=== PATIENT | female | born 1975 | race Caucasian/White ===

== ENCOUNTER → 2020-03-30 07:16 | Outpatient (CLI) | payer BC, SELFPAY ==
--- NOTE | ~2020-03-30 | MM_ITS ---
EXAMINATION: MM screening [facility] BI w dinora HISTORY: Screening mammogram TECHNIQUE: Craniocaudal and mediolateral oblique 3-D tomosynthesis images were obtained and synthetic 2-D images were generated. CAD analysis was submitted and interpreted. COMPARISON: 8 09/19/2016 bilateral digital screening mammogram 01/30/2012 bilateral diagnostic digital mammogram and bilateral breast ultrasound 01/23/2012 bilateral digital screening mammogram BREAST PARENCHYMAL COMPOSITION: The breasts are heterogeneously dense, which may obscure small masses . FINDINGS: Stable fibroglandular asymmetry. Occasional benign calcifications. There is no evidence of suspicious mass, calcification, or architectural distortion to suggest malignancy in either breast. T here has been no suspicious interval change. IMPRESSION: 1. No mammographic evidence of malignancy. 2. Recommend routine screening mammography in one year. BI-RADS Category 2: Benign finding(s). Reviewed, dictated and finalized at location A. FINISHER
== END ==
DX: Z12.31 Encounter for screening mammogram for malignant neoplasm of breast (principal)
CPT/HCPCS: 77063; 77067

== ENCOUNTER → 2022-02-21 16:43 | Outpatient (CLI) | payer BC, SELFPAY ==
--- NOTE | ~2022-02-21 | MM_ITS ---
EXAMINATION: MM screening [facility] BI w dinora HISTORY: Screening mammogram TECHNIQUE: Craniocaudal and mediolateral oblique 3-D tomosynthesis images were obtained and synthetic 2-D images were generated. CAD analysis was submitted and interpreted. COMPARISON: 03/30/2020, 12/03/2016 BREAST PARENCHYMAL COMPOSITION: There are scattered areas of fibroglandular density. FINDINGS: No suspicious mass, calcification, or architectural distortion are identified in either bharat ast to suggest malignancy. There has been no suspicious interval change. IMPRESSION: 1. No mammographic evidence of malignancy. 2. Recommend routine screening mammography in one year. BI-RADS Category 1: Negative Reviewed, dictated and finalized at location A.
== END ==
PROVIDERS: PCP Family Medicine; Visit Provider Nurse Practitioner Gerontology
DX: Z12.31 Encounter for screening mammogram for malignant neoplasm of breast (principal)
CPT/HCPCS: 77063; 77067

== ENCOUNTER 2023-06-10 08:11 | Outpatient (CLI) | payer BC, SELFPAY ==
[2023-06-10 09:17] LABS: Anion Gap 5 mmol/L (8-16); Blood Urea Nitrogen 14 mg/dL (7-17); Calcium 9.4 mg/dL (8.4-10.2); Carbon Dioxide 32 mmol/L (22-30); Chloride 103 mmol/L (98-107); Estimated Glomerular Filt Rate > 60; Glucose 106 mg/dL (65-110); Sodium 140 mmol/L (137-145)
== END 2023-06-10 08:12 | disposition home or self-care (01) ==
LOC: ANHSURGERY 08:13
PROVIDERS: Anesthesiology; PCP Family Medicine; Visit Provider Podiatrist Foot & Ankle Surgery
DX: Z01.818 Encounter for other preprocedural examination (principal); Z51.81 Encounter for therapeutic drug level monitoring
CPT/HCPCS: 36415; 80048

== ENCOUNTER 2023-06-13 00:07 | Day surgery (SDC) | payer BC, SELFPAY ==
[2023-06-06 09:52] VITALS: BMI 45.5
--- NOTE | 2023-06-06 10:10 | PC.NURSE ---
Report to the Outpatient Waiting Room, entrance under the green pavilion located off [facility], at time __10:00AM on date ___06/13/23____. Planned Procedure Time: _12:00PM . Time changes happen often and if your time is changed the preop area will call you the afternoon before. - You and your visitor will be asked to self-screen and do not enter if you have any COVID symptoms. - A mask is optional within the hospital at this time. Patients may have clear liquids (water, carbonated beverages, clear teas, apple juice) until 3 hours prior to surgery with a maximum of 20 ounces. - No food from midnight until time of surgery. Take the following medications with a SIP of water the morning of surgery: ___VIIBRYD DO NOT STOP ANY OF YOUR OTHER PRESCRIPTION MEDICATIONS PRIOR TO SURGERY ?EXCEPT THE FOLLOWING Medications to discontinue per physician __HOLD IBUPROFEN PER DR RICHARDSON(5 DAYS PRE-OP PER PATIENT)-LAST DOSE 06/07/23. HOLD ALL VITAMINS/SUPPLEMENTS 3 DAYS PRE-OP PER ANESTHESIA- LAST DOSE 06/09/23. Please no make-up, nail sami, hairspray, perfume, deodorant, or body powder the day of surgery. No jewelry (including any body piercings) or valuables the day of surgery, leave them at home. Please take a shower or bath the night before, or the morning of, surgery with an antibacterial soap. Wear comfortable, loose fitting clothing. - Jewelry must be removed prior to entering the operating room. Rings and piercings that are not removed may be cut off. - The hospital will not accept responsibility for valuables. - Please leave all valuables, including medications, at home the day of surgery. If you are going home after surgery, a licensed auto driver must drive you home. - NO public transportation without another adult if you receive anesthesia. - We recommend that an adult stay with you for 24 hours following discharge. - We also recommend that you do not drive, make important decision, drink alcoholic beverages, or take any drugs that were not prescribed by your health care provider for at least 24 hours after your discharge time. Follow any additional instructions given to you from your surgeon. If you or anyone in your household have experienced Covid symptoms in the past week, please notify your surgeon or the nurse liaison at the phone number below for possible testing. Telephone instructions given to ____PATIENT and asked if any additional questions and then verbalized understanding. Patient advised to call surgeon office or pre surgery nurse liaison [phone] if any additional questions.
--- NOTE | 2023-06-12 14:11 | WPDANESEPPF ---
Anes - Initial Pre Proc Eval Procedure: Operation Date: 06/13/23 12:00 Proposed Procedures p Partial Plantar Fasciectomy Right Foot - Donnie Camp JR, MD s Hammertoe Repair Fifth Digit Right Foot - Donnie Camp JR, MD Date/Time: 06/12/23 14:11 Surgeon: Donnie Camp JR, MD Pre Op Diagnosis: Plantar Fasciitis Right Foot, Hammertoe (cont) Patient Data Age: 47 Gender: F Height: 1.68 m Weight: 128 kg Allergies Allergy/AdvReac Type Severity Reaction Status Date / Time citalopram Allergy Mild rash Verified 06/13/23 10:16 escitalopram Allergy Mild rash Verified 06/13/23 10:16 Home Medications Medication Instructions Recorded Confirmed Type hydrochlorothiazide 12.5 mg tablet 12.5 mg PO QAM #90 tabs 10/03/22 06/13/23 Rx acetaminophen 500 mg capsule 1,000 mg PO QAM 06/06/23 06/13/23 History cholecalciferol (vitamin D3) 50 50 mcg PO DAILY 06/06/23 06/13/23 History mcg (2,000 unit) tablet ibuprofen 200 mg tablet 800 mg PO QAM 06/06/23 06/13/23 History losartan 100 mg tablet 100 mg PO QAM 06/06/23 06/13/23 History vilazodone 40 mg tablet (Viibryd) 40 mg PO QAM 06/06/23 06/13/23 History vitamin E 1,000 unit tablet 1 tablet PO DAILY 06/06/23 06/13/23 History Patient hx anesthesia problems: none Family hx anesthesia problems: none Results Review: All pre-operative results and documents have been reviewed as part of the pre-operative evaluation. [facility] Past Medical History Medical History Ankylosing spondylitis Arthritis Benign essential HTN ANA (generalized anxiety disorder) MDD (major depressive disorder), recurrent episode, moderate Morbid (severe) obesity due to excess calories Osteoarthritis of left knee Surgical History Surgical History History of nasal septoplasty History of tonsillectomy age 13 History of total knee arthroplasty R knee S/P right knee arthroscopy S/P JAMAR (total abdominal hysterectomy) Family History Family History Father Family history of gout Family history of diabetes mellitus in first degree relative Family history of malignant melanoma Mother Family history of malignant neoplasm of breast in first degree relative Lung cancer metastatic to brain Sibling Cerebrovascular accident Other Diabetes mellitus Family history of arthritis Social History Social History Social History: Smoking status: Never smoker Second hand tobacco smoke exposure: No Alcohol intake: current Alcohol use details: Occasionally Substance use: never Substance use type: does not use Lack of Transportation: No Lack of Food: Never True Current Housing: I Have Housing Concerned About Future Housing: No Difficulty Paying Gas/Electric Bills: No Difficulty Paying for Meds: No Currently Unemployed: No Education: Decline to Answer Difficulty w/ Childcare or Family Care: No Living arrangements: with family Additional living arrangements comments: [place] Occupation/Education: occupation Gender identity (if verbalized by the patient): Female Sexual Orientation (if Verbalized by the Patient): Straight or Heterosexual Spiritual care concerns: No Anes - Eval Final PreProcedure Day of Procedure 06/12/23 14:11 Patient weight: morbidly obese Heart: regular rate and rhythm Lungs: clear to auscultation Airway: Mallampati scale class II Neurological: alert and oriented Last oral intake: >/= 8 hours ASA classification: III Emergent: no Anesthetic plan: proceed Anesthesia type and monitoring: general GIVS and standard monitoring Results Review: All pre-operative results and documents have been reviewed as part of the pre-operative evaluation. Informed Consent: The patient's anesthetic plan and its attendant
--- NOTE | ~2023-06-13 | XR_ITS ---
EXAMINATION: XR surgery orthopedic DATE: 06/13/2023 13:15 INDICATION: Right foot surgery TECHNIQUE: Single fluoroscopic image of the right forefoot were obtained during during procedure perf ormed by Dr. Camp. Radiologist was not present for the imaging or procedure. The amount of fluoro scopy time used during this procedure was 0.1 minutes. COMPARISON: None. FINDINGS: Osteotomy of the head of the right fifth proximal phalanx. There is a metallic instrument laterally d eflecting the fifth middle and distal phalanges. Lucent soft tissue gas at the operative bed. IMPRESSION: 1. Fluoroscopy utilized during resection of the head of the right fifth proximal phalanx. Reviewed, dictated and finalized at location A. NDANT ARCADE IMPRESSION: 1. Fluoroscopy utilized during resection of the head of the right fifth proxima l phalanx.
--- NOTE | 2023-06-13 07:11 | WPDHPUPDATE1 ---
History and Physical Update Update Date/Time: 06/13/23 07:11 History and Physical has been reviewed, including an updated exam of the patient. There are NO changes in the patient's condition. Risks, benefits, and alternatives have been discussed and questions answered. Patient agrees to proceed with procedure.
[2023-06-13 10:41] VITALS: BP 130/64; PULSE 76; RESP 18; TEMP 36.7; O2SAT 98; BMI 43.8
[2023-06-13] MEDS: ceFAZolin 3 GM/D5W 100 ML 100 ML IVPB (12:29)
[2023-06-13] MEDS: BUPivacaine HCL 0.5% PF 30 ML VIAL 10 ML INFILTRATE (12:59)
[2023-06-13] MEDS: LIDOCAINE HCL 2% LOCAL INJ 20 ML VIAL 10 ML INFILTRATE (13:00)
--- NOTE | 2023-06-13 13:29 | W.PM.PROC2 ---
Procedure Note - Detailed Date of Procedure 06/13/23 Pre-op Diagnosis 1. Plantar Fasciitis Right Foot 2. Hammertoe deformity 5th digit right foot Post-op Diagnosis Same Procedure Performed 1. Partial plantar fasciectomy right foot 2. Hammertoe correction 5th digit right foot Surgeon Donnie Camp JR, DPM Anesthesia MAC and Local Indications 1. Painful inferior right heel 2. Painful 5th digit right foot Description of Procedure Under mild sedation, the patient was brought in to the operating room, placed on the operating table in the supine position. A pneumatic ankle tourniquet was placed about the patient's ankle. Following general anesthesia, local anesthesia was obtained about the affected right ankle utilizing 30 mL of a one to mix of 2% Lidocaine plain and 0.5% Marcaine plain to the tibial nerve and about the 5th metatarsal in a Yadav Block. The foot was then scrubbed, prepped, and draped in the usual aseptic manner. An Esmarch bandage was then used to exsanguinate the patient's foot and the pneumatic ankle tourniquet was then inflated. Next, an incision was made starting distal to the medial tubercle of the calcaneus extending distally 3cm. All bleeders were cauterized as necessary. Next the dissection was continued down to the plantar fascia it was exposed medially and laterally with [employer] [place] retractors. Two thirds of the medial plantar fascia was transected and a 4mm portion was also cut and discarded. The wound site was flushed with sterile saline. The deep subcutaneous tissue was reapproximated with 3.0 Vicryl and the skin was reapproximated with 2.0 Prolene and 3.0 Prolene in Vertical mattress and Simple interrupted suture technique. Attention was directed to the fifth digit where two converging semi-elliptical incisions were made about the dorsal proximal interphalangeal joint of the fifth digit right foot. The incisions were oriented from distal medial to proximal lateral. The ellipse of skin was excised in toto.? All bleeders were cauterized as necessary. The proximal interphalangeal joint was now identified.? A transverse tenotomy was created dorsal to the proximal interphalangeal joint, next the head of the proximal phalanx was carefully freed from the capsular and ligamentous structures.? The head of the proximal phalanx was resected with an oscillating saw blade and placed on the back table. Care was taken to make sure that adequate bone was resected with Fluoroscopy, also the digit was noted to sit in a more rectus position with the adductovarus deformity reduced.? I reapproximated the extensor tendon with 4.0 Vicryl. Next I reapproximated the skin with 4.0 Prolene in simple interrupted suture fashion technique in order to maintain the position of the digit in a rectus position. The skin plasty adequately reduced the deformity to the digit. Upon completion of the procedure, the incisions were dressed with adaptic, 4x4 gauze, kerlix and coban. The pneumatic ankle tourniquet was then deflated and a prompt hyperemic response was noted to all digits of the affected foot. A CAM Walker boot was then applied. The patient did very well with the procedure and the anesthesia. The patient was transferred to the recovery room with vital signs stable and vascular status intact to all toes of the affected foot. Following a period of postoperative monitoring, the patient will be discharged home on the following written and oral postoperative instructions: 1. The patient should keep the dressing clean, dry, and intact. Use a cast protector bag with showers. 2. The patient will be strictly non weight bearing with a knee scooter and a CAM Walker boot for one week folowed by protected weight bearing with CAM walker boot for an additional 2 weeks until the sutures are removed. 3. Patient should ice and elevate the affected foot when at rest. 4. The patient is to contact Dr. Camp for all postop care and if any problems arise. 5. Prescri
[2023-06-13 13:35] VITALS: BP 118/71; PULSE 69; RESP 16; O2SAT 98
[2023-06-13] MEDS: LACTATED RINGERS 1,000 ML 30 ML IV CONT (13:35)
[2023-06-13 14:05] VITALS: BP 123/73; PULSE 70; RESP 16
[2023-06-13 14:35] VITALS: BP 128/74; PULSE 59; RESP 16
[2023-06-13 14:55] VITALS: BP 129/75; PULSE 70; RESP 16
== END 2023-06-13 15:12 | disposition home or self-care (01) ==
PROVIDERS: PCP Family Medicine; Visit Provider Podiatrist Foot & Ankle Surgery
PROC: (CPT 28119; principal; 2023-06-13 12:00)
PROC: (CPT 28060; 2023-06-13 12:00)
DX: M72.2 Plantar fascial fibromatosis (principal); M20.41 Other hammer toe(s) (acquired), right foot; I10 Essential (primary) hypertension; F41.9 Anxiety disorder, unspecified; F33.1 Major depressive disorder, recurrent, moderate; M17.12 Unilateral primary osteoarthritis, left knee; E66.01 Morbid (severe) obesity due to excess calories; Z68.41 Body mass index [BMI] 40.0-44.9, adult; Z98.890 Other specified postprocedural states; Z80.8 Family history of malignant neoplasm of other organs or systems; Z82.49 Family history of ischemic heart disease and other diseases of the circulatory system
CPT/HCPCS: 28060; 28285; 99199; J0690; J1100; J2250; J2405; J2704; J3010; J7120

== ENCOUNTER 2024-04-08 13:47 | Outpatient (CLI) | payer BC, SELFPAY ==
--- NOTE | ~2024-04-08 | MM_ITS ---
EXAMINATION: MM screening [facility] BI w dinora HISTORY: Screening TECHNIQUE: Craniocaudal and mediolateral oblique 3-D tomosynthesis images were obtained and synthetic 2-D images were generated. CAD analysis was submitted and interpreted. COMPARISON: Comparison to multiple prior studies sequentially, with oldest reviewed study dated 11/2016. BREAST PARENCHYMAL COMPOSITION: Not dense: There are scattered areas of fibroglandular density. FINDINGS: There is no evidence of suspicious mass, calcification, or architectural distortion to sugg est malignancy in either breast. There has been no suspicious interval change. IMPRESSION: 1. No mammographic evidence of malignancy. 2. Recommend routine screening mammography in one year. BI-RADS Category 1: Negative Reviewed, dictated and finalized at location B. ER SERVICE ATTENDANT
== END 2024-04-08 13:48 | disposition home or self-care (01) ==
LOC: MICIMG 13:48
PROVIDERS: PCP Physician Assistant; Visit Provider Physician Assistant
DX: Z12.31 Encounter for screening mammogram for malignant neoplasm of breast (principal)
CPT/HCPCS: 77063; 77067